=== PATIENT | female | born 1965 | race Caucasian/White ===

== ENCOUNTER → 2017-02-26 | Outpatient (CLI) | payer BC ==
[~2017-02-26] MED LIST: ALBU18002 PO; FLVHFA110 PO; XRL10 PO
--- NOTE | 2017-02-26 17:36 | DIAGNOSTIC IMAGING REPORT ---
CHEST 2 VIEWS ROUTINE HISTORY: COUGH COMPARISON: Chest 04/01/2015. FINDINGS: No pleural effusions. No pneumothorax. The heart is normal in size. Right lung is clear. Slight progression of the linear opacities within the lingula. IMPRESSION: Slight progression of the lingular opacities which may represent a superimposed pneumonia on the background of chronic scarring/atelectasis. Follow-up chest x-ray in one month is recommended to ensure resolution. Electronically signed by: Lux Mercado M.D. 02/26/2017 5:34 PM Dictated Date/Time: 02/26/2017 5:32 PM
== END | disposition home or self-care (01) ==
LOC: C.RAD 17:16
PROVIDERS: ATTEND Family Medicine Hospice and Palliative Medicine
DX: R05 Cough (principal)

== ENCOUNTER 2017-03-05 14:38 | Emergency (ER) | payer BC ==
[~2017-03-05] VITALS: Ht 167.6 cm; Wt 100.5 kg
[~2017-03-05 14:38] MED LIST changes: -ALBU18002 PO; -FLVHFA110 PO
[2017-03-05 14:48] VITALS: BP 155/92; PULSE 95; TEMP 36.6; O2SAT 95; Ht 167.6 cm; Wt 100.5 kg
[2017-03-06] MEDS ORDERED: FLVHFA110 PO (09:16)
[2017-03-06] MEDS ORDERED: ALBU18002 PO (09:16)
== END 2017-03-05 15:50 | disposition left against medical advice (07) ==
LOC: C.EDB 14:39
DX: R06.02 Shortness of breath (principal)

== ENCOUNTER → 2017-03-05 | Outpatient (CLI) | payer BC ==
[2017-03-05 13:32] LABS: BASO % 0.3 %; BASO ABS # 0.04 K/uL (0-0.2); EOS % 3.9 %; HEMATOCRIT 41.9 % (37-47); IG% 1.8 %; LYMPH ABS # 3.25 K/uL (1.2-3.4); MEAN CELL VOLUME 82.2 fL (80-100); MEAN CORPUSCULAR HEMOGLOBIN 27.5 pg (25-34); MONO % 7.6 %; NEUT % 61.4 %; PLATELET COUNT 363 K/uL (130-400); WHITE BLOOD COUNT 12.98 K/uL (4.8-10.8)
[2017-03-05 13:44] LABS: COMPLETE YES; MEAN CORPUSCULAR HGB CONC 33.4 g/dl (32-36)
== END | disposition home or self-care (01) ==
LOC: C.LAB 13:06
PROVIDERS: ATTEND Family Medicine
DX: R76.0 Raised antibody titer (principal); R06.02 Shortness of breath; R53.83 Other fatigue

== ENCOUNTER 2017-03-06 08:12 | Emergency (ER) | payer BC ==
[~2017-03-06] VITALS: Ht 167.6 cm; Wt 99.8 kg
[2017-03-06 08:16] VITALS: TEMP 36.6; Ht 167.6 cm; Wt 99.8 kg
[2017-03-06] MEDS ORDERED: OPTIRAY 320 IV PRN (08:45)
[2017-03-06] MEDS ORDERED: ALBU18002 PO (09:16)
[2017-03-06] MEDS ORDERED: FLVHFA110 PO (09:16)
--- NOTE | 2017-03-06 09:19 | DIAGNOSTIC IMAGING REPORT ---
CHEST CTA for PULMONARY ARTERIES CT DOSE: 353.33 mGy.cm HISTORY: Abnormal chest x-ray. Elevated d-dimer. Recent pneumonia. TECHNIQUE: Multiaxial CT images of the chest were performed following the intravenous administration of contrast to evaluate the pulmonary arteries. Maximal intensity projection images were also obtained. COMPARISON STUDY: Chest 02/26/2017. FINDINGS: Normal caliber thoracic aorta with no evidence for dissection. No pleural or pericardial effusions. No evidence for pulmonary embolus. The central airways are patent. No pneumothorax. Groundglass densities within the lower lobes posteriorly favor mild dependent change. Right lower lobe linear densities favor subsegmental atelectasis. Linear densities within the right middle lobe and lingula also favor atelectasis. A 7 mm hypodense lesion within the left hepatic lobe. This is too small to characterize but favors a cyst. Hepatic steatosis. The spleen is unremarkable. No mediastinal or hilar lymphadenopathy. IMPRESSION: 1. No evidence for pulmonary embolus. 2. Bibasilar linear densities favor subsegmental atelectasis. 3. Hepatic steatosis. Electronically signed by: Lux Mercado M.D. 03/06/2017 9:16 AM Dictated Date/Time: 03/06/2017 9:09 AM
--- NOTE | 2017-03-06 09:38 | DIAGNOSTIC IMAGING REPORT ---
CHEST 2 VIEWS ROUTINE HISTORY: cough, recent pneumonia COMPARISON: Chest 02/26/2017. FINDINGS: The heart is normal in size. No pleural effusions. No pneumothorax. Bibasilar linear densities favor subsegmental atelectasis. There is improved aeration within the left lung base. Slight elevation the right hemidiaphragm, unchanged. IMPRESSION: Bibasilar linear densities favor subsegmental atelectasis. This has improved within the left lung base. Electronically signed by: Lux Mercado M.D. 03/06/2017 9:36 AM Dictated Date/Time: 03/06/2017 9:34 AM
[2017-03-06 10:11] VITALS: BP 142/93; PULSE 79; O2SAT 99
--- NOTE | 2017-03-06 16:55 | EMERGENCY ROOM VISIT NOTE ---
ED Visit Note First contact with patient: 08:26 Chief Complaint: Shortness of breath. History of Present Illness: Ms. Smith is a 51-year-old white female who ambulates into the ED complaining of exertional shortness of breath. Historically patient has a history of bilateral lower leg DVT from over a year ago. She was on 6 months of and then the medications was stopped. Patient reports approximately 3 weeks ago she developed fevers and cough. She was feeling slightly better but went in to see her doctor and was diagnosed with left lower lobe pneumonia. She had a follow-up visit with her PCP 2 days ago and at that time laboratory tests were done that showed she had an elevated d-dimer. She has remained having exertional dyspnea was referred to the ED for CTA scan to evaluate for pulmonary embolism. Currently her only complaint is exertional shortness of breath. She reports she does not have any shortness of breath while at rest. She still maintains a mild nonproductive cough. She has finished her antibiotics as prescribed but has not continued using her albuterol. She denies fevers, chills, sweats, skin eruptions, skin color changes, hemoptysis, chest pain, palpitations, orthopnea, abdominal pain, nausea, vomiting, recent surgery/inactivity/extended travel, estrogen/tobacco use. Review of Systems: As noted above in history of present illness. All body systems were reviewed and found to be negative as noted above. Past Medical History: As previously noted. Current Medications: Home Meds and Scripts Medications Dose Route/Sig Max Daily Dose Days Date Category Proair Respiclick (Albuterol Sulfate) 108 Mcg/Act Aer 2 Puffs PO QID PRN 03/06/17 Reported Flovent Hfa (Fluticasone Propionate) 120 Puffs/05850 Mcg Aero 2 Puffs PO BID 03/06/17 Reported Allergies to Medications: Penicillin. Social History: Patient is currently employed; she feels safe in her home environment; she denies tobacco use; she does admit to alcohol use. Physical Examination: Vital Signs: Date Time Temp Pulse Resp B/P Pulse Ox O2 Delivery O2 Flow Rate FiO2 03/06/17 10:11 79 18 142/93 99 03/06/17 08:37 Room Air 94 03/06/17 08:16 36.6 76 18 161/89 98 Room Air GENERAL: 51-year-old female in no acute distress, nontoxic-appearing, afebrile and hemodynamically stable. NEUROLOGICAL: Awake, alert and oriented to person, place and time. Answering questions appropriately and following commands. Normal gait. Good hand eye coordination. No focal motor sensory deficits. SKIN: Warm, dry and pink. No soft tissue eruptions or trauma noted. HEENT: Atraumatic and normocephalic. PERRL. Sclera white and conjunctiva pink. No drainage from naris. Oral cavity moist and pink. Pharynx is nonerythematous or edematous. Speech normal. No lymphadenopathy. Trachea midline. No jugular venous distention. BACK: No tenderness over the bony spine. No CVA tenderness. THORAX: Lungs sounds are clear to auscultation and equal bilaterally with symmetrical chest wall. No wheezing, rales or rhonchi. No crepitus, tenderness , subcutaneous air or deformities noted. HEART: Regular rate and rhythm. No gallops, rubs or murmurs are appreciated. ABDOMEN: Flat, soft and nontender. Positive bowel sounds in all quadrants. No guarding, rigidity or organomegaly. EXTREMITIES: Moves all extremities well on command and with purpose. All distal neurovascular statuses are intact and equal bilaterally. Bilateral dependent edema. No calf tenderness or cords. ED Course: Patient is assessed as noted above. Chest X-Rays: Was reviewed by myself and read by the radiologist for comparison to previous and shows bibasilar linear densities favoring segmental atelectasis ; this is an improvement within her left lung base when compared to previous. Chest CTA: Was reviewed by myself and read by the radiologist and found no evidence of pulmonary embolism, bilateral linear densities favoring atelectasis and hepatic steatosis. Patient was reassessed multiple times during her stay in the emergency department. Patient's case was reviewed with Dr. Hayes; we agreed on diagnostic approach, treatment, disposition and plan. Clinical Impression: Dyspnea on exertion. Elevated d-dimer; negative CT scan for pulmonary embolism Disposition: Patient discharged home in stable condition; prior to departure he was reassessed and subjectively reported she was not feeling short of breath Plan: Patient was encouraged to continue to use her inhalers as prescribed until resolution of shortness of breath. Patient was encouraged to follow-up with her PCP and inform the mother to today' s ED visits results. Patient was encouraged return ED for worsening shortness of breath, shortness of breath at rest, coughing up blood, fevers or any new/concerning symptoms.
== END 2017-03-06 10:13 | disposition home or self-care (01) ==
LOC: C.EDB 08:14
DX: R06.09 Other forms of dyspnea (principal); R79.1 Abnormal coagulation profile; Z86.718 Personal history of other venous thrombosis and embolism

== ENCOUNTER → 2017-05-14 | Outpatient (CLI) | payer BC ==
[~2017-05-14] MED LIST changes: +ALBU18002 PO; +FLVHFA110 PO; -XRL10 PO
== END ==
LOC: C.PAPS 15:26
PROVIDERS: ATTEND Obstetrics & Gynecology
DX: Z01.419 Encounter for gynecological examination (general) (routine) without abnormal findings (principal)

== ENCOUNTER → 2017-05-20 | Outpatient (CLI) | payer BC ==
--- NOTE | 2017-05-20 18:49 | DIAGNOSTIC IMAGING REPORT ---
ABDOMEN COMPLETE (US) CLINICAL HISTORY: Abdominal pain. COMPARISON STUDY: No previous studies for comparison. FINDINGS: Increased hepatic echogenicity is consistent with fatty infiltration. A hypoechoic focus within the gallbladder fossa suggests fatty sparing. There is no biliary ductal dilatation. The common bile duct measures 5 mm in caliber. No gallstones are identified. There is borderline gallbladder wall thickening which is likely due to a partially contracted gallbladder. A 2 mm focus within the gallbladder favors a small polyp. The pancreatic body is normal. The head and tail are partially obscured. The size of the spleen is normal. The right kidney measures 12.3 cm and the left measures 9.5 cm. There is no hydronephrosis. The caliber of the abdominal aorta is normal. There may be scarring within the upper pole the left kidney. IMPRESSION: 1. 2 mm focus within the gallbladder which favors a tiny polyp. A small gallstone could appear similar but is considered less likely. No evidence of acute cholecystitis. 2. No biliary ductal dilatation. 3. Fatty liver. 4. No hydronephrosis. Electronically signed by: Asad Ospina M.D. 05/20/2017 6:48 PM Dictated Date/Time: 05/20/2017 6:45 PM
== END | disposition home or self-care (01) ==
LOC: C.ULTR 17:53
PROVIDERS: ATTEND Student in an Organized Health Care Education/Training Program

== ENCOUNTER → 2017-12-03 | Outpatient (CLI) | payer OTHER ==
--- NOTE | 2017-12-06 14:46 | MAMMOGRAPHY REPORT ---
BILATERAL DIGITAL SCREENING MAMMOGRAM TOMOSYNTHESIS WITH CAD: 12/03/2017 CLINICAL HISTORY: Routine screening. TECHNIQUE: Breast tomosynthesis in addition to standard 2D mammography was performed. Current study was also evaluated with a Computer Aided Detection (CAD) system. COMPARISON: Comparison is made to exams dated: 06/15/2016 mammogram, 12/10/2014 mammogram - [facility], and 03/16/2013 mammogram. BREAST COMPOSITION: There are scattered areas of fibroglandular density in both breasts. FINDINGS: There is a nodular 4 mm asymmetry seen within the left medial breast on the cc view only, p ossibly projecting inferiorly on the MLO view, which may represent normal overlapping fibroglandular tissue although spot compression tomosynthesis views and possible breast ultrasound are recommended f or further evaluation. Additionally, there is a lobulated 9 mm mass with associated faint calcificat ions in the right subareolar breast for which spot magnification views and possible breast ultrasound are recommended. There is a small cluster of calcifications within the right upper inner quadrant, for which spot magnification views are recommended. The remainder of both breasts demonstrate no suspicious masses, calcifications, or areas of etl informatica architect ural distortion. IMPRESSION: ACR BI-RADS CATEGORY 0: INCOMPLETE EVALUATION: NEED ADDITIONAL IMAGING EVALUATION Left breast asymmetry and right breast mass/calcifications, for which additional imaging evaluation i s recommended. The patient will be called to schedule an appointment. Approximately 10% of breast cancers are not detected with mammography. A negative mammographic report should not delay biopsy if a clinically suggestive mass is present. Kat Vasquez M.D. ah/:12/03/2017 16:49:55 Tree Pruner: Nash AMLEIDA(Roger)(Michael), [facility] letter sent: Addl Imaging 0 BI-RADS Code: ACR BI-RADS Category 0: Incomplete Evaluation: Need Additional Imaging Evaluation
== END | disposition home or self-care (01) ==
LOC: C.MAMM 14:53
PROVIDERS: ATTEND Obstetrics & Gynecology
DX: Z12.31 Encounter for screening mammogram for malignant neoplasm of breast (principal); N64.9 Disorder of breast, unspecified; N63.10 Unspecified lump in the right breast, unspecified quadrant; R92.1 Mammographic calcification found on diagnostic imaging of breast

== ENCOUNTER → 2017-12-15 | Outpatient (CLI) | payer OTHER ==
--- NOTE | 2017-12-16 13:45 | MAMMOGRAPHY REPORT ---
BILATERAL DIGITAL DIAGNOSTIC MAMMOGRAM TOMOSYNTHESIS AND TARGETED BILATERAL ULTRASOUND: 12/15/2017 CLINICAL HISTORY: 51-year-old woman called back from screening mammography for bilateral asymmetries and right breast microcalcifications. Family history of breast cancer. TECHNIQUE: Spot compression left CC and MLO 2-D and tomosynthesis images; Spot magnification right C C and ML views were obtained. COMPARISON: Comparison is made to exams dated: 12/03/2017 mammogram, 06/15/2016 mammogram, 12/10/2014 [facility], and 03/16/2013 mammogram. BREAST COMPOSITION: There are scattered areas of fibroglandular density in both breasts. FINDINGS: The spot compression tomosynthesis views of the left breast demonstrate a vague focal asymm etry in the lower inner middle one third of the left breast, measuring approximately 6.5 x 4.1 mm bas ed on the spot compression MLO view. No associated architectural distortion or microcatheter calcifi cations. The spot magnification views of the right breast demonstrate a small cluster of amorphous microcalcif ication in the upper inner middle one third of the breast, measuring 5.3 mm. When comparing back to prior available mammograms, these may have been present on the 2016 mammograms but not clearly seen o n 2014 or prior mammograms and are therefore indeterminate. Definitive characterization with a stere otactic biopsy is recommended. There is a lobulated 7.8 mm mass with associated microcalcification in the retroareolar versus 12:00 anterior right breast. On the spot magnification ML view, some of the calcifications appear to be la yering within the mass, suggesting they represent milk of calcium. Further characterization with ult rasound was performed. Targeted ultrasound was performed in the right breast 12:00 and retroareolar region. There is a lobu lated predominantly anechoic benign simple cyst measuring 8.5 x 2.9 x 6.7 mm, likely correlating with the mammographic mass with associated microcalcification. This is benign. Additional scanning perf ormed in the lower inner quadrant of the left breast demonstrates a tangle of tubular isoechoic struc tures in the 8:00 axis, 3 cm from the nipple, measuring 7.2 x 4.7 x 7.3 mm. This could represent an intraductal process such as a papilloma or possibly PASH, DCIS cannot be excluded. Definitive charac terization with an ultrasound-guided core biopsy is recommended. IMPRESSION: ACR BI-RADS CATEGORY 4: SUSPICIOUS, TARGETED ULTRASOUND ACR BI-RADS CATEGORY 4: SUSPICIO US 1. Ultrasound-guided core biopsy is recommended for a conglomerate isoechoic tubular structures in t he 8:00 left breast, 3 cm from the nipple, measuring 7.3 mm, thought to correlate with a persistent f ocal asymmetry in the left lower inner quadrant on spot compression tomosynthesis images. 2. 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 3. A 7.8 mm lobulated mass with associated layering calcification is thought to correspond to a adelaida gn cyst in the 12:00 retroareolar right breast on targeted ultrasound. No further workup is needed a t this time. These results and recommendations were discussed with the patient at the time of the exam. She tenta tively scheduled the bilateral breast biopsies prior to leaving our department. Approximately 10% of breast cancers are not detected with mammography. A negative mammographic report should not delay biopsy if a clinically suggestive mass is present. Sary Bassett M.D. ay/:12/15/2017 15:28:32 Legal Executive Assistant: Veronica MAYORGA)(Michael), [facility] letter sent: Abnormal 4/5 BI-RADS Code: ACR BI-RADS Category 4: Suspicious Ultrasound BI-RADS: ACR BI-RADS Category 4: Suspici ous
== END | disposition home or self-care (01) ==
LOC: C.MAMM 08:09
PROVIDERS: ATTEND Obstetrics & Gynecology
DX: N64.9 Disorder of breast, unspecified (principal); R92.1 Mammographic calcification found on diagnostic imaging of breast; N63.10 Unspecified lump in the right breast, unspecified quadrant

== ENCOUNTER → 2017-12-20 | Outpatient (CLI) | payer OTHER ==
--- NOTE | 2017-12-20 13:25 | Discharge Instructions ---
Discharge Instructions Procedure Procedure Date: Dec 20, 2017. Reason for visit: Right Calcs/Bx Left Mass. Discharge Discharge Date: Dec 20, 2017. Discharge Diagnosis: status post breast biopsy Instructions Activity Recommendations: Additional Limitations (see below) Return to School/Work: no limitations Recommended Home Diet: No Limitations Provider Instructions: ACTIVITY RECOMMENDATIONS: * No lifting, pushing, pulling or exercising the affected side for three days. RETURN TO SCHOOL/WORK: * You may return to work/school after the procedure, but do not perform any strenuous activities for 24 to 48 hours. MEDICATIONS: * Tylenol (two 325 mg) every four to six hours if needed for mild pain (if not allergic to Tylenol). DIET: * Resume previous diet. SPECIAL CARE INSTRUCTIONS: * Keep biopsy site dry for 24 hours. May shower after 24 hours, but do not soak (bathe) incision. * May remove Tegaderm (plastic patch) tomorrow AFTER showering. * Leave the steri-strips on for one week. Allow the steri-strips to fall off by themselves. If not off after one week, you may remove them. You may place a Bandaid crosswise over the strips, if desired. * Apply ice 10 minutes on and 10 minutes off as needed. * Wear a bra at bedtime to sleep more comfortably for 2-3 days. * Your referring physician should have the results after approximately 5 to 7 business days. * Call for unusual bleeding, fever, drainage, etc or if you have any questions call during normal business hours or after hours call Dr Vasquez, . FOLLOW UP VISIT: Follow-up with Referring Physician as scheduled. Allergies Coded Allergies: Penicillins (Verified Allergy, Unknown, unknown, 03/06/17) Nomi Jacques Recommendations: Call your doctor if: * Temperature above 101 degrees * Pain not relieved by pain medicine ordered * There is increased drainage or redness from any incision * You have any unanswered questions or concerns. Your Doctors Instructions noted above were prepared by provider Kat Vasquez. Patient Signature Section: Patient Instructions Signature Page Ila Emmaromán Patient (or Guardian) Signature/Date: I have read and understand the instructions given to me by my caregivers. Caregiver/RN/Doctor Signature/Date: The above-named patient and/or guardian has received patient instructions on this date. + Original Patient Signature Page (only) stays with chart. Please make copy for patient.
--- NOTE | 2017-12-20 15:50 | MAMMOGRAPHY REPORT ---
STEREOTACTIC GUIDED BIOPSY RIGHT BREAST: 12/20/2017 CLINICAL HISTORY: Indeterminate calcifications in the right upper outer quadrant. PATIENT CONSENT: The procedure, risks, benefits, and alternatives of stereotactic biopsy with clip pl acement were discussed with the patient, and verbal and written consent was obtained. A timeout was performed immediately prior to the procedure. PROCEDURE DESCRIPTION: With stereotactic guidance, aseptic technique, and lidocaine as a local anesth etic (1% lidocaine to anesthetize the skin and 1% lidocaine with epinephrine to anesthetize the deepe r tissues), the calcifications of concern in the right upper inner quadrant were sampled multiple marga es with a 9-gauge vacuum-assisted biopsy needle (ComputeNext). The path of approach was lateral. Th e specimen radiograph demonstrates calcifications to be present in the samples. A metallic marker cl ip was placed at the biopsy site. This was confirmed on postprocedure mammograms. Direct pressure w as applied at the biopsy site and hemostasis was readily achieved. The patient tolerated the procedu re without complication. She was given wound care instructions. COMPARISON: Comparison is made to exams dated: 12/15/2017 mammogram, 12/03/2017 mammogram, 06/15/2016 m ammogram, 12/10/2014 mammogram - [facility], and 03/16/2013 mammogram. IMPRESSION: STEREOTACTIC GUIDED BIOPSY Stereotactic biopsy of indeterminate calcifications in the right upper inner quadrant, with clip plac ement. The patient will receive pathology results from her referring provider. Kat Vasquez M.D. /:12/20/2017 13:56:36 Document Control Supervisor: Nash ALMEIDA(R)(Michael), [facility]
--- NOTE | 2017-12-20 15:50 | MAMMOGRAPHY REPORT ---
ULTRASOUND GUIDED BIOPSY LEFT BREAST: 12/20/2017 CLINICAL HISTORY: Left 8:00 breast mass. PATIENT CONSENT: The procedure, risks and benefits were discussed with the patient and informed writt en consent was obtained. A timeout was performed immediately prior to the procedure. PROCEDURE DESCRIPTION: With ultrasound guidance, aseptic technique, and lidocaine as the local anesth etic (1% lidocaine to anesthetize the skin and 1% lidocaine with epinephrine to anesthetize the deepe r tissues), the abnormality of concern in the left 8:00 breast was sampled 4 times with a 14-gauge Ac hieve biopsy needle. Immediately thereafter, with ultrasound guidance, aseptic technique, and lidoca ine as the local anesthetic, a metallic localizer clip was placed at the biopsy site. Direct pressur e was applied to the site immediately post procedure and hemostasis was achieved. Postprocedure unil ateral mammograms were performed to confirm clip placement. The patient tolerated the procedure witho ut complication. She was given wound care instructions. The specimens were sent to pathology for marta lysis. COMPARISON: Comparison is made to exams dated: 12/15/2017 ultrasound, 12/15/2017 mammogram, 06/15/2016 mammogram, and 12/03/2017 mammogram - [facility]. IMPRESSION: ULTRASOUND GUIDED BIOPSY Ultrasound guided core needle biopsy of the abnormality in the left 8:00 breast, with clip placement. The patient will receive pathology results from her referring provider. Kat Vasquez M.D. /:12/20/2017 13:26:56 Bpm Architect: Nash MAYORGA)(Michael), [facility]
--- NOTE | 2017-12-20 15:53 | MAMMOGRAPHY REPORT ---
BILATERAL DIGITAL DIAGNOSTIC MAMMOGRAM TOMOSYNTHESIS: 12/20/2017 CLINICAL HISTORY: Status post bilateral breast biopsies. TECHNIQUE: Breast tomosynthesis in addition to standard 2D mammography was performed. Postprocedura l right CC and ML views and postprocedural left CC and ML 2-D and tomosynthesis images were obtained. COMPARISON: Comparison is made to exams dated: 12/20/2017 stereotactic biopsy, 12/15/2017 ultrasound, 12/15/2017 mammogram, 12/03/2017 mammogram, 06/15/2016 mammogram, and 12/20/2017 ultrasound biopsy - [facility]. BREAST COMPOSITION: There are scattered areas of fibroglandular density in both breasts. FINDINGS: A new biopsy marker clip is seen in the right superior and slightly medial breast at the s ite of the biopsied calcifications. A new ribbon-shaped biopsy marker clip is seen at the site of th e biopsied mass in the left 8:00 breast; the biopsy marker clip is located at the site of the previou sly described mammographic asymmetry, indicating good mammographicsonographic correlation. No signi ficant postbiopsy hematoma is seen. IMPRESSION: POST PROCEDURE IMAGING FOR MARKER PLACEMENT New biopsy marker clips status post bilateral breast biopsies. Pathology results are pending. Approximately 10% of breast cancers are not detected with mammography. A negative mammographic report should not delay biopsy if a clinically suggestive mass is present. Kat Vasquez M.D. /:12/20/2017 14:17:59 Drug Clerk: Nash MAYORGA)(M), [facility] BI-RADS Code: Post Procedure Imaging For Marker Placement
== END | disposition home or self-care (01) ==
LOC: C.MAMM 12:51
PROVIDERS: ATTEND Obstetrics & Gynecology
DX: R92.0 Mammographic microcalcification found on diagnostic imaging of breast (principal); N63.10 Unspecified lump in the right breast, unspecified quadrant; N60.91 Unspecified benign mammary dysplasia of right breast

== ENCOUNTER → 2018-06-13 | Outpatient (CLI) | payer OTHER ==
[~2018-06-13] MED LIST changes: +GADAVIST IV PRN
--- NOTE | 2018-06-14 07:29 | MAMMOGRAPHY REPORT ---
BREAST MRI OF BOTH BREASTS: 06/13/2018 CLINICAL HISTORY: 52-year-old woman with biopsy-proven atypical ductal hyperplasia in the upper inner posterior right breast. She presents for preoperative breast MRI prior to excisional biopsy. An ultr asound-guided core biopsy performed in the 8:00 left breast yielded benign pathology results. COMPARISON: Prior screening mammograms dated 09/15/2007, 12/05/2008, 12/12/2009, 01/28/2011, 02/24/2012, , 12/10/2014, 06/15/2016, 12/03/2017, bilateral diagnostic mammograms and ultrasound dated 018, ultrasound-guided core biopsy of the left breast 12/20/2017, and stereotactic guided right breast biopsy dated 12/20/2017. TECHNIQUE: Using a 1.5 Moni magnet and dedicated breast coil, multisequence axial images were obtain ed through the breasts. After uneventful IV administration of 9.5 mL of Gadavist, dynamic multiphase contrast-enhanced axial images, and sagittal postcontrast were obtained. Temporal subtraction axial images and 3-D MIP images are provided. Everything was then reviewed on a 3-D workstation, [employer]. FINDINGS: Right breast: There is minimal background parenchymal enhancement of the right breast. There is a sm all focus of susceptibility artifact in the 12:00 posterior right breast, denoting the site of prior stereotactic biopsy which yielded atypical ductal hyperplasia. There is no prominent mass or non-mas s enhancement surrounding the biopsy marker clip. There is focal mass enhancement measuring 4.7 x 6. 9 mm in the 12:00/retroareolar anterior right breast (sagittal page 95/120 axial page 76/116), with s omewhat angular and non-circumscribed borders. There is corresponding T2 isointensity and a small in ternal focal area of hyperintensity suggesting this lesion may be partially cystic. It does not have the appearance of a rim-enhancing cyst. Associated kinetics are plateau and central washout, partic ularly along the superior and posterior aspect of this mass. When comparing back to prior available s tudies, a simple cyst was previously noted in the 12:00/retroareolar right breast on the diagnostic u ltrasound performed December 15, 2017, thought to correlate with the second focal mammographic asymmet ry. However, given the suspicious associated kinetics currently identified along the superior and po sterior aspect, ultrasound-guided core biopsy of this mass is recommended. No other suspicious mass o r non-mass enhancement is identified in the right breast. No skin thickening or nipple retraction. No suspicious right axillary lymphadenopathy. Left breast: There is minimal background parenchymal enhancement of the left breast. There is a focu s of susceptibility artifact in the 8:00 posterior left breast, denoting the site of prior benign ult rasound-guided core biopsy. No suspicious enhancing mass, non-mass enhancement, architectural distor tion or suspicious kinetics are identified in the left breast. No skin thickening or nipple retracti on. No suspicious left axillary lymphadenopathy. Note is made of platelike atelectasis in the visualized dependent anterior right lung. IMPRESSION: ACR BI-RADS CATEGORY 4: SUSPICIOUS 1. The biopsy marker clip in the 12:00 posterior right breast denoting the biopsy-proven atypical du ctal hyperplasia has no current evidence of abnormal mass or non-mass enhancement to suggest addition al disease although surgical excision is still recommended. 2. There is a 5 x 7 mm partially enhancing non-circumscribed mass in the 12:00/retroareolar right br east, which may correlate with the previously seen cyst in the 12:00/retroareolar right breast on goldy gnostic ultrasound dated December 15, 2017. Ultrasound-guided core biopsy of this cystic mass is felisa mmended, given the partial enhancement on MRI. 3. Stable postbiopsy changes, without MRI evidence of malignancy in the left breast. 4. No suspicious axillary adenopathy bilaterally. 5. Platelike atelectasis in the visualized dependent right lung. The patient will be called to schedule an appointment. Sary Bassett M.D. ay/:06/13/2018 17:56:00 Crystal Growing Technician: pediatric medical assistant, [facility] letter sent: Abnormal 4/5 BI-RADS Code: ACR BI-RADS Category 4: Suspicious
== END | disposition home or self-care (01) ==
LOC: C.MRI 15:28
PROVIDERS: ATTEND Surgery
DX: Z01.818 Encounter for other preprocedural examination (principal); Z80.3 Family history of malignant neoplasm of breast; N60.99 Unspecified benign mammary dysplasia of unspecified breast

== ENCOUNTER → 2018-06-22 | Outpatient (CLI) | payer OTHER ==
[~2018-06-22] MED LIST changes: -GADAVIST IV PRN
--- NOTE | 2018-06-22 11:09 | Discharge Instructions ---
Discharge Instructions Procedure Procedure Date: Jun 22, 2018. Reason for visit: Right Mass. Discharge Discharge Date: Jun 22, 2018. Discharge Diagnosis: status post breast biopsy Instructions Activity Recommendations: Additional Limitations (see below) Return to School/Work: no limitations Recommended Home Diet: No Limitations Provider Instructions: ACTIVITY RECOMMENDATIONS: * No lifting, pushing, pulling or exercising the affected side for three days. RETURN TO SCHOOL/WORK: * You may return to work/school after the procedure, but do not perform any strenuous activities for 24 to 48 hours. MEDICATIONS: * Tylenol (two 325 mg) every four to six hours if needed for mild pain (if not allergic to Tylenol). DIET: * Resume previous diet. SPECIAL CARE INSTRUCTIONS: * Keep biopsy site dry for 24 hours. May shower after 24 hours, but do not soak (bathe) incision. * May remove Tegaderm (plastic patch) 24 hours after procedure * Leave the steri-strips on for one week. Allow the steri-strips to fall off by themselves. If not off after one week, you may remove them. You may place a Bandaid crosswise over the strips, if desired. * Apply ice 10 minutes on and 10 minutes off as needed. * Wear a bra at bedtime to sleep more comfortably for 2-3 days. * Your referring physician should have the results after approximately 5 to 7 business days. * Call for unusual bleeding, fever, drainage, etc or if you have any questions call during normal business hours or after hours call Dr Vasquez, . FOLLOW UP VISIT: Follow-up with Referring Physician as scheduled. Allergies Coded Allergies: Penicillins (Verified Allergy, Unknown, unknown, 03/06/17) Nomi Jacques Recommendations: Call your doctor if: * Temperature above 101 degrees * Pain not relieved by pain medicine ordered * There is increased drainage or redness from any incision * You have any unanswered questions or concerns. Your Doctors Instructions noted above were prepared by provider Kat Vasquez. Patient Signature Section: Patient Instructions Signature Page Ila Smith Patient (or Guardian) Signature/Date: I have read and understand the instructions given to me by my caregivers. Caregiver/RN/Doctor Signature/Date: The above-named patient and/or guardian has received patient instructions on this date. + Original Patient Signature Page (only) stays with chart. Please make copy for patient.
--- NOTE | 2018-06-22 14:54 | MAMMOGRAPHY REPORT ---
ULTRASOUND GUIDED BIOPSY RIGHT BREAST: 06/22/2018 CLINICAL HISTORY: Partially enhancing mass in the right 12:00/subareolar breast seen on recent breast MRI, for which ultrasound-guided core needle biopsy was recommended. PATIENT CONSENT: The procedure, risks and benefits were discussed with the patient and informed writt en consent was obtained. A timeout was performed immediately prior to the procedure. First, preprocedural ultrasound was performed, which shows persistence of an anechoic mass in the rig ht 12:00 subareolar breast, which has the appearance of a cyst but does correspond with the partially enhancing mass seen on recent breast MRI, therefore the decision was made to biopsy the mass. PROCEDURE DESCRIPTION: With ultrasound guidance, aseptic technique, and lidocaine as the local anesth etic (1% lidocaine to anesthetize the skin and 1% lidocaine with epinephrine to anesthetize the deepe r tissues), the mass of concern in the right 12:00 subareolar breast was sampled 3 times with a 14-ga uge Achieve biopsy needle. Immediately thereafter, with ultrasound guidance, a metallic localizer c lip was placed at the biopsy site. Direct pressure was applied to the site immediately post procedur e until hemostasis was achieved. Postprocedure unilateral mammograms were performed to confirm clip placement; See separate dictation for details. Steri-Strips were placed over the site and covered w ith an Opsite patch. The patient tolerated the procedure without complication. She was given wound c are instructions. The specimens were sent to pathology for analysis. COMPARISON: Comparison is made to exams dated: 06/13/2018 breast MRI, 12/20/2017 mammogram, 12/20/2017 stereotactic biopsy, 12/20/2017 ultrasound biopsy, 12/15/2017 ultrasound, and 12/15/2017 mammogram - [facility]. IMPRESSION: ULTRASOUND GUIDED BIOPSY Ultrasound-guided core needle biopsy of the cyst in the right 12:00 subareolar breast, which correspo nds with the partially enhancing mass seen on recent breast MRI. The patient will receive pathology results from her referring provider. Kat Vasquez M.D. /:06/22/2018 11:11:47 Attending Technologist: RT Scott(R)(M), [facility] Manager Of Financial Planning: RT Wojciech(R)(M), [facility]
--- NOTE | 2018-06-22 14:57 | MAMMOGRAPHY REPORT ---
UNILATERAL RIGHT DIGITAL DIAGNOSTIC MAMMOGRAM TOMOSYNTHESIS: 06/22/2018 CLINICAL HISTORY: Status post right breast ultrasound-guided biopsy. TECHNIQUE: The study was acquired using full field digital technology and interpreted from soft copy. Breast tomosynthesis in addition to standard 2D mammography was performed. Postprocedural right CC and ML tomosynthesis images were obtained. COMPARISON: Comparison is made to exams dated: 12/20/2017 mammogram, 12/15/2017 mammogram, 12/03/2017 m ammogram, 06/15/2016 mammogram, 12/10/2014 mammogram, and 06/13/2018 breast MRI - [facility]. BREAST COMPOSITION: There are scattered areas of fibroglandular density in right breast. FINDINGS: A new ribbon-shaped biopsy marker clip is seen at the site of the biopsied mass in the righ t subareolar breast. No significant postbiopsy hematoma is seen. A dumbbell-shaped biopsy marker cl ip is seen within the right superior breast from prior stereotactic biopsy which yielded atypia. IMPRESSION: POST PROCEDURE IMAGING FOR MARKER PLACEMENT New biopsy clip status post ultrasound-guided biopsy of the right subareolar breast mass. Pathology results are pending. Some breast cancers are not detected with mammography. A negative mammographic report should not dayana y biopsy if a clinically suggestive mass is present. Kat Vasquez M.D. ah/:06/22/2018 11:20:46 Attending Technologist: Nash Alejandro, RT(R)(M), [facility] Drupal Php Developer: Paulina Mora RT(R)(M), [facility] BI-RADS Code: Post Procedure Imaging For Marker Placement
== END | disposition home or self-care (01) ==
LOC: C.MAMM 10:23
PROVIDERS: ATTEND Surgery
DX: N63.10 Unspecified lump in the right breast, unspecified quadrant (principal); D24.1 Benign neoplasm of right breast